=== PATIENT | male | born 2000 | race Two or more races ===

== ENCOUNTER 2019-01-29 12:04 | Emergency (ER) | payer SELFPAY ==
[~2019-01-29] VITALS: Ht 165.1 cm; Wt 70.3 kg
[2019-01-29 12:51] VITALS: BP 132/81
[2019-01-29] MEDS ORDERED: IPRATROPIUM NEB FS 0.5 MG/2.5 ML AMPUL.NEB NEB ONE (13:00)
[2019-01-29] MEDS ORDERED: IBUPROFEN 600 MG TABLET PO ONE ×2 (13:00→13:15)
[2019-01-29] MEDS ORDERED: ALBUTEROL FS 2.5 MG/3 ML VIAL.NEB NEB ONE (13:00)
[2019-01-29] MEDS ORDERED: predniSONE 20 MG TABLET PO ONE (13:00)
[2019-01-29] MEDS ORDERED: predniSONE 20 MG TABLET ONE (13:16)
[2019-01-29] MEDS ORDERED: ALBUTEROL FS 2.5 MG/3 ML VIAL.NEB ONE (13:18)
[2019-01-29] MEDS ORDERED: IPRATROPIUM NEB FS 0.5 MG/2.5 ML AMPUL.NEB ONE (13:18)
--- NOTE | 2019-01-29 13:19 | NUR ---
CALLED RT FOR BREATHING TREATMENT.
== END 2019-01-29 14:01 | disposition home or self-care (01) ==
LOC: ER 12:04
DX: J45.909 Unspecified asthma, uncomplicated (principal)
CPT/HCPCS: 94640; 99283; J7512

== ENCOUNTER 2019-11-17 22:24 | Emergency (ER) | payer OTHER ==
[~2019-11-17] VITALS: Ht 172.7 cm; Wt 79.4 kg
[2019-11-17 22:24] VITALS: BP 150/88
--- NOTE | 2019-11-17 22:27 | NUR ---
CALLED PT TO BE TRIAGED. NO ANSWER
[2019-11-17] MEDS ORDERED: IPRATROPIUM NEB FS 0.5 MG/2.5 ML AMPUL.NEB ONE (22:59)
[2019-11-17] MEDS ORDERED: ALBUTEROL FS 2.5 MG/3 ML VIAL.NEB ONE (22:59)
[2019-11-17] MEDS ORDERED: predniSONE 20 MG TABLET PO ONE (23:00)
[2019-11-17] MEDS ORDERED: IPRATROPIUM NEB FS 0.5 MG/2.5 ML AMPUL.NEB NEB ONE (23:00)
[2019-11-17] MEDS ORDERED: ALBUTEROL FS 2.5 MG/3 ML VIAL.NEB NEB ONE (23:00)
[2019-11-17] MEDS ORDERED: predniSONE 20 MG TABLET ONE (23:12)
== END 2019-11-17 23:44 | disposition home or self-care (01) ==
LOC: ER 22:25
DX: J45.909 Unspecified asthma, uncomplicated (principal)
CPT/HCPCS: 94640; 99283; J7512

== ENCOUNTER 2020-03-28 16:54 | Emergency (ER) | payer OTHER ==
[~2020-03-28] VITALS: Ht 170.2 cm; Wt 81.6 kg
--- NOTE | 2020-03-28 17:08 | NUR ---
ASTHMA ATTACK - HAPPENED 45 MINUTES AGO, HE ALSO RUN OUT OF HIS PRO AIR -MDI
--- NOTE | 2020-03-28 17:10 | NUR ---
[facility] RODGERS AT BEDSIDE
[2020-03-28] MEDS ORDERED: ALBUTEROL FS 2.5 MG/3 ML VIAL.NEB ONE (17:21)
[2020-03-28] MEDS ORDERED: IPRATROPIUM NEB FS 0.5 MG/2.5 ML AMPUL.NEB ONE (17:21)
[2020-03-28] MEDS ORDERED: IPRATROPIUM NEB FS 0.5 MG/2.5 ML AMPUL.NEB NEB ONE (17:30)
[2020-03-28] MEDS ORDERED: ALBUTEROL FS 2.5 MG/3 ML VIAL.NEB NEB ONE (17:30)
[2020-03-28 17:48] VITALS: BP 127/89
== END 2020-03-28 17:49 | disposition home or self-care (01) ==
LOC: ER 17:00
DX: J45.901 Unspecified asthma with (acute) exacerbation (principal); Z76.0 Encounter for issue of repeat prescription

== ENCOUNTER 2020-12-02 17:45 | Emergency (ER) | payer OTHER ==
[~2020-12-02] VITALS: Ht 170.2 cm; Wt 81.6 kg
[2020-12-02] MEDS ORDERED: IPRATROPIUM NEB FS 0.5 MG/2.5 ML AMPUL.NEB NEB ONE (18:00)
[2020-12-02] MEDS ORDERED: ALBUTEROL FS 2.5 MG/3 ML VIAL.NEB NEB ONE ×2 (18:00→19:30)
[2020-12-02] MEDS ORDERED: predniSONE 20 MG TABLET PO ONE (18:00)
--- NOTE | 2020-12-02 18:02 | NUR ---
BIBS DRIVING HOME TO WORK. TO OER BED 7. AAOX4. IN MILD DISTRESS, SOB. SATTING AT 96% ON RA.CAME IN FOR ASTHMA EXACERBATION. PT REPORTS THAT HE RAN OUT OF INHALER FOR A WEEKS ALREADY. NOTED DIMINISHED BREATH SOUNDS. PROVIDER WAS AT THE BEDSIDE FOR EVAL.
[2020-12-02] MEDS ORDERED: predniSONE 20 MG TABLET ONE (18:09)
[2020-12-02] MEDS ORDERED: IPRATROPIUM NEB FS 0.5 MG/2.5 ML AMPUL.NEB ONE (18:12)
[2020-12-02] MEDS ORDERED: ALBUTEROL FS 2.5 MG/3 ML VIAL.NEB ONE ×2 (18:12→19:08)
[2020-12-02] MEDS ORDERED: ALBU8.5H8 INH (19:23)
[2020-12-02] MEDS ORDERED: PRED20TA PO (19:23)
[2020-12-02] MEDS ORDERED: ALBU1.257 NEB (19:23)
--- NOTE | 2020-12-02 20:00 | NUR ---
Patient discharged to home in stable condition. Written and verbal after care instructions given. Patient verbalizes understanding of instruction. Pt ambulatory with a steady gait
[2020-12-02 20:23] VITALS: BP 118/77
== END 2020-12-02 20:00 | disposition home or self-care (01) ==
LOC: ER 17:52
DX: J45.901 Unspecified asthma with (acute) exacerbation (principal); Z76.0 Encounter for issue of repeat prescription; Z79.899 Other long term (current) drug therapy
CPT/HCPCS: 94640 ×3; 99285; J7512

== ENCOUNTER 2021-04-01 17:18 | Emergency (ER) | payer OTHER ==
[~2021-04-01] VITALS: Ht 170.2 cm; Wt 77.1 kg
[~2021-04-01 17:18] MED LIST: ALBU1.257 NEB; ALBU8.5H8 INH; PRED20TA PO
[2021-04-01] MEDS ORDERED: IPRATROPIUM NEB FS 0.5 MG/2.5 ML AMPUL.NEB ONE (17:38)
[2021-04-01] MEDS ORDERED: ALBUTEROL FS 2.5 MG/3 ML VIAL.NEB ONE (17:38)
[2021-04-01] MEDS ORDERED: IPRATROPIUM NEB FS 0.5 MG/2.5 ML AMPUL.NEB NEB ONE (18:00)
[2021-04-01] MEDS ORDERED: predniSONE 20 MG TABLET PO ONE (18:00)
[2021-04-01] MEDS ORDERED: ALBUTEROL FS 2.5 MG/3 ML VIAL.NEB NEB ONE (18:00)
[2021-04-01] MEDS ORDERED: predniSONE 20 MG TABLET ONE (18:08)
[2021-04-01 18:13] VITALS: BP 128/67
--- NOTE | 2021-04-01 18:13 | NUR ---
PT VERBALIZED THAT HE FEELL BACK TO HIS NORMAL.
--- NOTE | 2021-04-01 18:14 | NUR ---
Patient discharged to home in stable condition. Written and verbal after care instructions given. Patient verbalizes understanding of instruction. Pt ambulatory with a steady gait
[2021-04-01] MEDS ORDERED: PRED50TA PO (18:15)
[2021-04-01] MEDS ORDERED: ALBU8.5H8 INH (18:15)
[2021-04-01] MEDS ORDERED: ALBU1.257 NEB (18:15)
== END 2021-04-01 18:25 | disposition home or self-care (01) ==
LOC: ER 17:21
DX: J45.909 Unspecified asthma, uncomplicated (principal); Z79.899 Other long term (current) drug therapy
CPT/HCPCS: 94640 ×2; 99285; J7512